=== PATIENT | female | born 1950 | race Two or more races ===

== ENCOUNTER 2017-12-04 08:50 | Outpatient (CLI) | payer OTHER | END 2017-12-04 08:53 | disposition home or self-care (01) | LOC: SONOGRAMA 08:50 | DX: E04.1 Nontoxic single thyroid nodule (principal) ==

== ENCOUNTER 2019-10-18 07:13 | Outpatient (CLI) | payer OTHER | END 2019-10-18 07:16 | disposition home or self-care (01) | LOC: SONOGRAMA 07:13 | DX: E04.1 Nontoxic single thyroid nodule (principal) ==